=== PATIENT | female | born 1985 | race Caucasian/White ===

== ENCOUNTER 2017-01-24 17:02 | Inpatient (IN) | payer BC ==
[2017-01-24] MEDS ORDERED: Terbutaline 1 MG/ML SDV SUBCUT PRN (17:49)
[2017-01-24] MEDS ORDERED: Lactated Ringers 1,000 ML IV SCH ×3 (18:00→23:00)
[2017-01-24] MEDS ORDERED: Ondansetron 4 MG/2 ML SDV IVPUSH ONE (18:16)
[2017-01-24] MEDS ORDERED: Metoclopramide 10 MG/2 ML SDV IVPUSH ONE (20:02)
[2017-01-25] MEDS ORDERED: ceFAZolin 2 GM in Premix Bag 1 BAG IV ONE (03:54)
[2017-01-25] MEDS ORDERED: Lactated Ringers 1,000 ML IV SCH (04:00)
[2017-01-25] MEDS ORDERED: Citric Acid/Sodium Citrate Solution 30 ML Cup PO SCH (04:00)
--- NOTE | 2017-01-25 04:20 | PCM.PREANE ---
Preanesthetic Assessment - Anesthesia/Transfusion/Family Hx Anesthesia History: No Prior Anesthesia Transfusion History: No Prior Transfusion(s) - Review of Systems General: No Symptoms Pulmonary: No Symptoms Cardiovascular: No Symptoms Gastrointestinal: No symptoms Neurological: No Symptoms Other: Reports: None - Physical Assessment Height: 1.52 m Weight: 66.193 kg ASA Class: 2 Mental Status: Alert & Oriented x3 Airway Class: Mallampati = 2 Dentition: Reports: Normal Dentition ROM/Head Extension: Full Lungs: Clear to auscultation, Normal respiratory effort Cardiovascular: Regular Rate, Regular Rhythm - Lab Values: Laboratory Last Values WBC 12.65 K/uL (4.0-11.0) H 01/24/17 19:52 RBC 4.11 M/uL (4.30-5.90) L 01/24/17 19:52 Hgb 12.7 g/dL (12.0-16.0) 01/24/17 19:52 Hct 37.2 % (36.0-46.0) 01/24/17 19:52 MCV 90.5 fL (80.0-98.0) 01/24/17 19:52 MCH 30.9 pg (27.0-32.0) 01/24/17 19:52 MCHC 34.1 g/dL (31.0-37.0) 01/24/17 19:52 RDW Std Deviation 42.7 fl (28.0-62.0) 01/24/17 19:52 RDW Coeff of Klaus 13 % (11.0-15.0) 01/24/17 19:52 Plt Count 196 K/uL (150-400) 01/24/17 19:52 MPV 11.90 fL (7.40-12.00) 01/24/17 19:52 Neut % (Auto) 75.9 % (48.0-80.0) 01/24/17 19:52 Lymph % (Auto) 16.4 % (16.0-40.0) 01/24/17 19:52 Pratt % (Auto) 7.2 % (0.0-15.0) 01/24/17 19:52 Eos % (Auto) 0.3 % (0.0-7.0) 01/24/17 19:52 Baso % (Auto) 0.2 % (0.0-1.5) 01/24/17 19:52 Neut # (Auto) 9.6 K/uL (1.4-5.7) H 01/24/17 19:52 Lymph # (Auto) 2.1 K/uL (0.6-2.4) 01/24/17 19:52 Pratt # (Auto) 0.9 K/uL (0.0-0.8) H 01/24/17 19:52 Eos # (Auto) 0.0 K/uL (0.0-0.7) 01/24/17 19:52 Baso # (Auto) 0.0 K/uL (0.0-0.1) 01/24/17 19:52 Nucleated RBC % 0.0 /100WBC 01/24/17 19:52 Nucleated RBCs # 0 K/uL 01/24/17 19:52 Sodium 136 mmol/L (136-146) 01/24/17 19:52 Potassium 3.5 mmol/L (3.5-5.1) 01/24/17 19:52 Chloride 107 mmol/L (98-110) 01/24/17 19:52 Carbon Dioxide 15 mmol/L (21-31) L 01/24/17 19:52 BUN 15 mg/dL (6.0-23.0) 01/24/17 19:52 Creatinine 1.2 mg/dL (0.6-1.5) 01/24/17 19:52 Est Cr Clr Drug Dosing 48.34 mL/min 01/24/17 19:52 Estimated GFR (MDRD) 52.1 ml/min 01/24/17 19:52 Glucose 89 mg/dL (60-110) 01/24/17 19:52 Uric Acid 8.5 mg/dL (2.1-6.2) H 01/24/17 19:52 Calcium 8.9 mg/dL (8.8-10.8) 01/24/17 19:52 Total Bilirubin 0.3 mg/dL (0.1-1.5) 01/24/17 19:52 AST 25 IU/L (5-40) 01/24/17 19:52 ALT 19 IU/L (8-54) 01/24/17 19:52 Alkaline Phosphatase 262 (40-150) H 01/24/17 19:52 Total Protein 6.5 g/dL (6.0-8.0) 01/24/17 19:52 Albumin 2.7 g/dL (3.5-5.0) L 01/24/17 19:52 Globulin 3.8 g/dL (2.0-3.5) H 01/24/17 19:52 Albumin/Globulin Ratio 0.7 (1.3-2.8) L 01/24/17 19:52 Urine Color YELLOW 01/24/17 19:15 Urine Appearance SLT CLOUDY 01/24/17 19:15 Urine pH 7.0 (5.0-8.0) 01/24/17 19:15 Ur Specific [place] 1.015 (1.001-1.035) 01/24/17 19:15 Urine Protein TRACE mg/dL (NEGATIVE) 01/24/17 19:15 Urine Glucose (UA) NEGATIVE mg/dL (NEGATIVE) 01/24/17 19:15 Urine Ketones NEGATIVE mg/dL (NEGATIVE) 01/24/17 19:15 Urine Occult Blood NEGATIVE (NEGATIVE) 01/24/17 19:15 Urine Nitrite NEGATIVE (NEGATIVE) 01/24/17 19:15 Urine Bilirubin NEGATIVE (NEGATIVE) 01/24/17 19:15 Urine Urobilinogen 0.2 EU/dL (<2.0) 01/24/17 19:15 Ur Leukocyte Esterase SMALL (NEGATIVE) 01/24/17 19:15 - Allergies Allergies/Adverse Reactions: Allergies Allergy/AdvReac Type Severity Reaction Status Date / Time No Known Allergies Allergy Verified 02/24/16 07:27 - Blood Blood Available: Yes - Anesthesia Plan Pre-Op Medication Ordered: Antacids - Acknowledgements Anesthesia Type Planned: Spinal Pt an Appropriate Candidate for the Planned Anesthesia: Yes Alternatives and Risks of Anesthesia Discussed w Pt/Guardian: Yes Pt/Guardian Understands and Agrees with Anesthesia Plan: Yes Additional Comments: two prior vaginal deliveries with epidural, term, twin gest, malposition of first twin, + rupt of membranes, No problems during . PMH=asthma, uses inhalers, NKDA PreAnesthesia Questionnaire Respiratory History: Reports: Asthma [employer]OR History: Reports: , Spontaneous - SUBSTANCE USE Smoking Status *Q: Never Smoker Second Hand Smoke Exposure: No Recreational Drug Use History: No - CURRENT (IN HOUSE) MEDS Current Meds: Current Medications Citric Acid/Sodium Citrate (Bicitra Solution) 30 ml PO .ONCE ELLE Lactated Ringer's (Ringers, Lactated) 1,000 mls @ 999 mls/hr IV .BOLUS [place] Last Admin: 01/24/17 18:10 Dose: 999 mls/hr Lactated Ringer's (Ringers, Lactated) 1,000 mls @ 250 mls/hr IV ASDIRECTED ELLE Last Admin: 01/24/17 19:14 Dose: 250 mls/hr Lactated Ringer's (Ringers, Lactated) 1,000 mls @ 150 mls/hr IV ASDIRECTED ELLE Last Admin: 01/24/17 23:23 Dose: 150 mls/hr Cefazolin Sodium/Dextrose 2 gm (/ Premix) 50 mls @ 100 mls/hr IV ONETIME ONE Stop: 01/25/17 04:23 Lactated Ringer's (Ringers, Lactated) 1,000 mls @ 500 mls/hr IV .BOLUS ELLE Terbutaline Sulfate (Brethine) 0.25 mg SUBCUT ASDIRECTED PRN PRN Reason: Other Stop: 01/25/17 17:54 Last Admin: 01/24/17 19:14 Dose: 0.25 mg Discontinued Medications Metoclopramide HCl (Reglan) 10 mg IVPUSH ONETIME ONE Stop: 01/24/17 20:03 Last Admin: 01/24/17 20:31 Dose: 10 mg Ondansetron HCl (Zofran) 4 mg IVPUSH ONETIME ONE Stop: 01/24/17 18:17 Last Admin: 01/24/17 18:40 Dose: 4 mg
[2017-01-25] MEDS ORDERED: Phenylephrine/Normal Saline 100 MCG/ML 10 ML Syringe ONE ×2 (04:30→05:27)
[2017-01-25] MEDS ORDERED: Oxytocin 10 Units/1 ML SDV ONE (04:30)
[2017-01-25] MEDS ORDERED: Morphine PF 10 MG/10 ML SDV ONE (04:31)
[2017-01-25] MEDS ORDERED: fentaNYL 100 MCG/2 ML SDV IVPUSH PRN (06:31)
[2017-01-25] MEDS ORDERED: Nalbuphine 10 MG/1 ML Vial IVPUSH PRN (06:31)
[2017-01-25] MEDS ORDERED: HYDROmorphone 2 MG/ML Syringe IVPUSH PRN (06:31)
[2017-01-25] MEDS ORDERED: Ketorolac 15 MG/ML SDV IVPUSH ONE (06:37)
[2017-01-25] MEDS ORDERED: Ketorolac 15 MG/ML SDV ONE (06:37)
[2017-01-25] MEDS ORDERED: Ondansetron 4 MG/2 ML SDV IV PRN (06:41)
[2017-01-25] MEDS ORDERED: Bisacodyl 10 MG Supp RECTAL PRN (06:41)
[2017-01-25] MEDS ORDERED: Lanolin 100% Cream 7 GM Tube TOP PRN (06:41)
[2017-01-25] MEDS ORDERED: Ibuprofen 800 MG Tab PO PRN (06:41)
[2017-01-25] MEDS ORDERED: diphenhydrAMINE 50 MG/ML SDV IVPUSH PRN (06:41)
[2017-01-25] MEDS ORDERED: Acetaminophen/oxyCODONE 325-5 MG Tab PO PRN (06:41)
[2017-01-25] MEDS ORDERED: Ketorolac 30 MG/ML SDV IVPUSH SCH (06:45)
--- NOTE | 2017-01-25 07:07 | PCM.POSTAN ---
POST ANESTHESIA ASSESSMENT - MENTAL STATUS Mental Status: alert, oriented - RESPIRATORY Respiratory Status: respiratory rate WNL, airway patent, O2 saturation stable - CARDIOVASCULAR CV Status: pulse rate WNL, blood pressure stable - GASTROINTESTINAL GI Status: no symptoms - PAIN Pain Score: 0 - POST OP HYDRATION Hydration Status: adequate & stable
--- NOTE | 2017-01-25 07:38 | PCM.OPNOTE ---
- General Post-Op/Procedure Note Date of Surgery/Procedure: 01/25/17 Operative Procedure(s): Primary low transverse section. Placement of surgicel Findings: VFI in breech presentation with APGARS of 7&8 and wt of 2290g, VMI in vtx presentation with APGARS 8&9 and wt of 2395g. Normal intact placentas, each with 3 vessel cords. Normal uterus, tubes and ovaries. Small bleeding vessel on the right side of the developed bladder flap Pre Op Diagnosis: Dichorionic/diamniotic twins. Breech presentation of twin A. Spontaneous rupture of membranes Post-Op Diagnosis: Same. Delivered Anesthesia Technique: Spinal Primary Surgeon: Alyx Galloway Anesthesia Provider: Silvino Boland Pathology: placentas Fluid Replacement, Intraop: 1,800 Output, Urine Amount: 150 EBL in mLs: 700 Complications: None known Condition: Good Free Text/Narrative:: Intake & Output 01/24/17 01/25/17 01/25/17 22:59 06:59 14:59 Intake Total 2500 Output Total 150 300 Balance -150 2200 JobID#[id number]
[2017-01-25] MEDS: Lactated Ringers 1,000 ML IV SCH ×2 (08:48→16:50)
[2017-01-25] MEDS: Docusate Sodium 100 MG Cap PO SCH (09:30)
[2017-01-25] MEDS ORDERED: Promethazine 25 MG/ML SDV IM ONE (10:08)
[2017-01-25] MEDS: Ketorolac 30 MG/ML SDV IVPUSH SCH ×2 (13:08→19:58)
[2017-01-26] MEDS: Ketorolac 30 MG/ML SDV IVPUSH SCH ×2 (02:19→08:54)
[2017-01-26] MEDS: Docusate Sodium 100 MG Cap PO SCH ×3 (03:25→21:19)
--- NOTE | 2017-01-26 13:37 | PCM48HPAN ---
Post Anesthesia Note - EVALUATION WITHIN 48HRS OF ANESTHETIC Vital Signs in Normal Range: Yes Patient Participated in Evaluation: Yes Respiratory Function Stable: Yes Airway Patent: Yes Cardiovascular Function Stable: Yes Hydration Status Stable: Yes Pain Control Satisfactory: Yes Nausea and Vomiting Control Satisfactory: Yes Mental Status Recovered: Yes
--- NOTE | 2017-01-26 15:18 | PCM.PNPP ---
- General Info Date of Service: 01/26/17 Functional Status: Reports: pain controlled, tolerating diet, ambulating, urinating - Review of Systems General: Reports: No Symptoms HEENT: Reports: no symptoms Pulmonary: Reports: no symptoms Cardiovascular: Reports: No Symptoms Gastrointestinal: Reports: No symptoms Genitourinary: Reports: no symptoms Musculoskeletal: Reports: no symptoms Skin: Reports: no symptoms Neurological: Reports: No Symptoms Psychiatric: Reports: no symptoms - General Info Date of Service: 01/26/17 - Patient Data Vital Signs - most recent: Last Vital Signs Temp 37.4 C 01/26/17 10:43 Pulse 84 01/26/17 10:43 Resp 16 01/26/17 10:43 BP 141/61 H 01/26/17 10:43 Pulse Ox 95 01/26/17 10:43 Weight - most recent: 66.193 kg I&O - last 24 hours: Intake & Output 01/26/17 01/26/17 01/26/17 06:59 14:59 22:59 Intake Total 1150 Output Total 1300 900 Balance -150 -900 Lab Results - last 24 hrs: Laboratory Results - last 24 hr 01/26/17 Range/Units 05:12 Hgb 10.4 L (12.0-16.0) g/dL Hct 31.4 L (36.0-46.0) % Med Orders - Current: Current Medications Bisacodyl (Dulcolax) 10 mg RECTAL .ONCE PRN PRN Reason: Constipation Citric Acid/Sodium Citrate (Bicitra Solution) 30 ml PO .ONCE ELLE Diphenhydramine HCl (Benadryl) 25 mg IVPUSH Q6H PRN PRN Reason: Itching or Nausea Docusate Sodium (Colace) 100 mg PO BID [facility] Last Admin: 01/26/17 08:54 Dose: 100 mg Emollient Ointment (Lansinoh Hpa) 0 gm TOP ASDIRECTED PRN PRN Reason: Sore Nipples Lactated Ringer's (Ringers, Lactated) 1,000 mls @ 999 mls/hr IV .BOLUS [facility] Last Admin: 01/24/17 18:10 Dose: 999 mls/hr Lactated Ringer's (Ringers, Lactated) 1,000 mls @ 250 mls/hr IV ASDIRECTED [facility] Last Admin: 01/24/17 19:14 Dose: 250 mls/hr Lactated Ringer's (Ringers, Lactated) 1,000 mls @ 150 mls/hr IV ASDIRECTED [facility] Last Admin: 01/24/17 23:23 Dose: 150 mls/hr Lactated Ringer's (Ringers, Lactated) 1,000 mls @ 500 mls/hr IV .BOLUS [facility] Lactated Ringer's (Ringers, Lactated) 1,000 mls @ 125 mls/hr IV ASDIRECTED [facility] Last Admin: 01/25/17 16:50 Dose: 125 mls/hr Ibuprofen (Motrin) 800 mg PO Q8H PRN PRN Reason: mild pain or fever Ondansetron HCl (Zofran) 4 mg IV Q4H PRN PRN Reason: Nausea/Vomiting Last Admin: 01/25/17 08:40 Dose: 4 mg Oxycodone/Acetaminophen (Percocet 325-5 Mg) 1 tab PO Q4H PRN PRN Reason: Pain (moderate 4-6) Oxycodone/Acetaminophen (Percocet 325-5 Mg) 2 tab PO Q4H PRN PRN Reason: Pain (moderate 4-6) Discontinued Medications Fentanyl (Sublimaze) 50 mcg IVPUSH Q5M PRN PRN Reason: Pain (severe 7-10) Stop: 01/26/17 06:32 Hydromorphone HCl (Dilaudid) 0.25 mg IVPUSH Q10M PRN PRN Reason: Pain (severe 7-10) Stop: 01/26/17 06:32 Cefazolin Sodium/Dextrose 2 gm (/ Premix) 50 mls @ 100 mls/hr IV ONETIME ONE Stop: 01/25/17 04:23 Ibuprofen (Motrin) 800 mg PO Q8H PRN PRN Reason: mild pain or fever Ketorolac Tromethamine (Toradol) 15 mg IVPUSH ONETIME ONE Stop: 01/25/17 06:38 Last Admin: 01/25/17 06:40 Dose: 15 mg Ketorolac Tromethamine (Toradol) Confirm Administered Dose 15 mg .ROUTE .STK- MED ONE Stop: 01/25/17 06:38 Last Admin: 01/25/17 11:17 Dose: Not Given Ketorolac Tromethamine (Toradol) 30 mg IVPUSH Q6H [facility] Stop: 01/26/17 06:46 Ketorolac Tromethamine (Toradol) 30 mg IVPUSH Q6H [facility] Stop: 01/26/17 07:01 Last Admin: 01/26/17 08:54 Dose: 30 mg Metoclopramide HCl (Reglan) 10 mg IVPUSH ONETIME ONE Stop: 01/24/17 20:03 Last Admin: 01/24/17 20:31 Dose: 10 mg Morphine Sulfate (Duramorph Pf) Confirm Administered Dose 10 mg .ROUTE .STK-MED ONE Stop: 01/25/17 04:32 Nalbuphine HCl (Nubain) 5 mg IVPUSH Q3H PRN PRN Reason: Pruritis Stop: 01/26/17 06:32 Ondansetron HCl (Zofran) 4 mg IVPUSH ONETIME ONE Stop: 01/24/17 18:17 Last Admin: 01/24/17 18:40 Dose: 4 mg Oxytocin (Pitocin) Confirm Administered Dose 20 unit .ROUTE .STK-MED ONE Stop: 01/25/17 04:31 Phenylephrine HCl (Phenylephrine In Ns 100 Mcg/Ml) Confirm Administered Dose 1 mg .ROUTE .STK-MED ONE Stop: 01/25/17 04:31 Phenylephrine HCl (Phenylephrine In Ns 100 Mcg/Ml) Confirm Administered Dose 1 mg .ROUTE .STK-MED ONE Stop: 01/25/17 05:28 Promethazine HCl (Phenergan) 12.5 - 25 mg IM ONETIME ONE Stop: 01/25/17 10:09 Last Admin: 01/25/17 10:20 Dose: 12.5 mg Terbutaline Sulfate (Brethine) 0.25 mg SUBCUT ASDIRECTED PRN PRN Reason: Other Stop: 01/25/17 17:54 Last Admin: 01/24/17 19:14 Dose: 0.25 mg - Interaction Disposition, : in Room with Family Infant Interaction: Holding Infant Feeding: Breastfed ; Nursed Well Support Person: - Recovery Exam Fundal Tone: Firm Fundal Level: 1 Fingerbreadths Below Umbilicus Fundal Placement: Midline Lochia Amount: Scant Lochia Color: Rubra/Red Perineum Description: Intact, Minimal Bruising/Swelling Episiotomy/Laceration: None Bladder Status: Voiding Urinary Elimination: Indwelling Catheter - Exam General: alert, oriented Neck: supple Lungs: Clear to auscultation, Normal respiratory effort Cardiovascular: Regular Rate, Regular Rhythm Abdomen: bowel sounds present, soft, no tenderness Extremities: no calf tenderness Skin: warm, dry, intact Wound/Incisions: healing well Neurological: no new focal deficit Psy/Mental Status: alert, normal affect, normal mood - Problem List & Annotations (1) delivery delivered SNOMED Code(s): 372975104 Code(s): O82 - ENCOUNTER FOR DELIVERY WITHOUT INDICATION Status: Acute Current Visit: Yes - Problem List Review Problem List Initiated/Reviewed/Updated: Yes - My Orders Last 24 Hours: My Active Orders 01/26/17 13:00 Ibuprofen [Motrin] 800 mg PO Q8H PRN - Assessment Assessment:: POD#1 S/p 1LTCS for malpresentation of fetus A Doing well other than cough Pain controlled with meds - Plan Plan:: Increase ambulation Pt may shower Routine postop/pp care
[2017-01-26] MEDS: Acetaminophen/oxyCODONE 325-5 MG Tab PO PRN ×3 (15:28→21:20)
[2017-01-26] MEDS: Ibuprofen 800 MG Tab PO PRN ×2 (15:29→23:25)
--- NOTE | 2017-01-26 17:13 | OR ---
SURGEON: Alyx Galloway DATE OF PROCEDURE: 01/25/2017 BRIEF PREOPERATIVE HISTORY: This is a 31-year-old G5, P1, presents to Labor and Delivery with complaints of generalized not feeling well with some nausea and vomiting. The patient was admitted for 23 observation overnight, secondary to not feeling well. In the meantime, the patient did receive 2 L of IV fluids for which the patient stated she felt better especially after having IV Zofran. Of note, the patient was 36 weeks 1 day with dye-dye twins, and the patient was also noted to be marilin anywhere from every 3 minutes or so, though the cervix was not making any changes. The patient was 3 cm in the office last time she was checked and she was 3 cm continuously in Labor and Delivery. Of note, the patient is category 1 status for both babies. Laboratory evaluation was completed, labs were noted to be fine. LFTs were within normal limits. Platelets were normal. The patient's uric acid was 8.5, and patient's creatinine was 1.2. The patient would have had a 24-hour urine to be started, though patient's blood pressures were noted to be normotensive. It was not sure at this point whether or not these were early symptoms of preeclampsia. While the patient was kept overnight for evaluation, the patient eventually underwent spontaneous rupture of membranes for clear fluid for fetus A. At this point, secondary to noting that fetus A was now presenting in breech presentation, the patient did elect for a primary section. The patient was apprised of the risk of being bleeding, infection, poor wound healing, possible damage to the bowel, the bladder, ureters, nerves, blood vessels, or any other adjacent structures, in addition to thromboembolic disease and risk of anesthesia. The patient was also apprised of the remote risk of hysterectomy. Knowing all of the above, the patient did consent to primary low transverse section. PREOPERATIVE DIAGNOSES: 1. Intrauterine at 36 weeks 2 days of dichorionic diamniotic twins. 2. Breech presentation of twin A. 3. Spontaneous rupture of membranes. POSTOPERATIVE DIAGNOSES: 1. Intrauterine at 36 weeks 2 days of dichorionic diamniotic twins. 2. Breech presentation of twin A. 3. Spontaneous rupture of membranes. 4. Delivery status. PROCEDURE PERFORMED: 1. Primary low transverse section. 2. Placement of Surgicel. ANESTHESIA: Spinal. ESTIMATED BLOOD LOSS: 700 mL. FLUIDS: Fluids replacement in the OR was 1800 mL of crystalloid. URINE OUTPUT: 150 mL of clear urine at the end of procedure. FINDINGS: Viable female infant in breech presentation with score of 7 and 8 at 1 and 5 minutes respectively and weight of 2395 g. Viable male in vertex presentation with score of 8 and 9 and weight of 2395 g. Normal intact placenta, each cord with three vessels. Normal uterus, tubes, and ovaries bilaterally. Small bleeding vessel on the right side that developed on bladder flap. PATHOLOGY: Placentas COMPLICATIONS: None known. CONDITION: Postprocedure was good. DESCRIPTION OF PROCEDURE: The patient was taken to the operating room where she had Venodynes on and active prior to the placement of spinal anesthesia. After placement of spinal, the patient was quickly laid down and placed in the left lateral tilt. The patient then had a Yen placed that was draining clear fluid. The patient's abdomen was then cleansed. The patient was then prepped and draped in normal sterile fashion. A time-out was held to ensure the appropriate patient, appropriate position, and appropriate procedure. The patient also did receive 2 g of IV Ancef prior to start of procedure. Prior to start of procedure, the patient was tested with an Allis clamp and spinal anesthesia was noted to be adequate. A Pfannenstiel skin incision was then made approximately 2 cm above the symphysis pubis with a new scalpel blade. The Bovie was used to dissect down to the underlying layer of fascia. The fascia was incised in the midline and then extended laterally with the Bovie. The Franc clamps were used to grasp the superior aspect of the fascial incision, tented up, and the rectus muscles were dissected off bluntly then sharply with the Bovie. Attention was then turned to the inferior portion of the fascial incision, which the inferior portion of the fascia was tented up and the rectus muscles were dissected off bluntly then sharply with the Bovie. The rectus muscles were then in the midline in lateral blunt stretching after entering the peritoneal cavity. The Imtiaz self-retaining retractor was then placed in the patient's abdomen. The vesicouterine peritoneum was identified, tented up with the pickups, and entered sharply with the Metzenbaum scissors. The bladder flap was created digitally. A fresh scalpel blade was used to incise the lower uterine segment in a transverse fashion. The hysterotomy incision then was extended in anterior - posterior direction to prevent lateral excess shearing out to the uterine vessels. The amniotic fluid was noted to be clear. The fetus A buttocks was brought through the hysterotomy incision, followed by the legs and feet. The right arm was reduced, followed by the left arm and then the baby's head was flexed and brought through the hysterotomy incision. Cord was doubly clamped, the infant screening was handed off to the awaiting physician Dr. Avila. The 2nd bag of fluid was noted to be bulging and amniotomy was completed with a Franc clamp. The vertex was brought through the hysterotomy incision followed by body. Fetus B which was the boy had a vigorous cry at delivery. [place] was suction, cord was doubly clamped, cut, and was taken directly over to the baby warmer. Afterwards, cord gases were completed for a fetus A which was the little girl secondary to poor crying effort and slightly limp at delivery. Cord blood was collected for both newborns. The placentas were removed manually. IV Pitocin was given as uterotonic to prevent excessive maternal blood loss and to help firm up the uterus. The uterus was cleared of all clots and debris. The first layer of the hysterotomy incision was closed with 0 Vicryl suture in a running, locked fashion. The second layer of the same suture was used to imbricate the 2nd layer. Hemostasis was noted to be excellent on the hysterotomy incision. The ovaries and tubes were checked bilaterally and noted to be normal. There was some excess blood from the right side of the developed bladder flap. It was noted that there was a small bleeding vessel that was cauterized with the Bovie. A piece of Surgicel was placed on the right lateral edge of the developed bladder flap and then the remainder of the Surgicel was brought across the bladder flap and hysterotomy incision. Once hemostasis was noted to be excellent, the peritoneum and rectus muscles were then reapproximated with 0 Vicryl suture in a running mattress suture. The fascia was reapproximated with 0 Vicryl suture in a running fashion. The subcutaneous adipose was reapproximated initially with 3 - 0 plain gut suture. The skin was reapproximated with 3-0 Prolene suture on a Fer needle. The remainder of the suture was tied. Mastisol was placed along with Steri-Strips, Telfa, and a pressure dressing. The uterus was expelled of excess blood. The patient was cleansed. The patient was transferred to her bed. The patient went to recovery in awake and stable condition. MELANIE GODOY /[id number]
[2017-01-27] MEDS: Acetaminophen/oxyCODONE 325-5 MG Tab PO PRN ×6 (01:22→23:16)
[2017-01-27] MEDS: Ibuprofen 800 MG Tab PO PRN ×2 (08:07→16:09)
[2017-01-27] MEDS: Docusate Sodium 100 MG Cap PO SCH ×2 (08:08→21:45)
--- NOTE | 2017-01-27 08:27 | PCM.PNPP ---
- General Info Date of Service: 01/27/17 Functional Status: Reports: pain controlled, tolerating diet, ambulating, urinating - Review of Systems General: Reports: No Symptoms HEENT: Reports: no symptoms Pulmonary: Reports: no symptoms Cardiovascular: Reports: No Symptoms Gastrointestinal: Reports: No symptoms Genitourinary: Reports: no symptoms Musculoskeletal: Reports: no symptoms Skin: Reports: no symptoms Neurological: Reports: No Symptoms Psychiatric: Reports: no symptoms - Patient Data Vital Signs - most recent: Last Vital Signs Temp 36.4 C 01/27/17 04:00 Pulse 74 01/27/17 04:00 Resp 16 01/27/17 04:00 BP 138/88 01/27/17 04:00 Pulse Ox 97 01/27/17 04:00 Weight - most recent: 66.193 kg I&O - last 24 hours: Intake & Output 01/26/17 01/27/17 01/27/17 22:59 06:59 14:59 Intake Total 1800 Output Total 150 Balance 1650 Lab Results - last 24 hrs: Laboratory Results - last 24 hr 01/27/17 Range/Units 04:41 Sodium 139 (136-146) mmol/L Potassium 4.1 (3.5-5.1) mmol/L Chloride 106 (98-110) mmol/L Carbon Dioxide 23 (21-31) mmol/L BUN 19 (6.0-23.0) mg/dL Creatinine 1.2 (0.6-1.5) mg/dL Est Cr Clr Drug Dosing 48.34 mL/min Estimated GFR (MDRD) 52.1 ml/min Glucose 85 (60-110) mg/dL Calcium 8.0 L (8.8-10.8) mg/dL Total Bilirubin 0.2 (0.1-1.5) mg/dL AST 28 (5-40) IU/L ALT 15 (8-54) IU/L Alkaline Phosphatase 160 H (40-150) Total Protein 4.9 L (6.0-8.0) g/dL Albumin 2.3 L (3.5-5.0) g/dL Globulin 2.6 (2.0-3.5) g/dL Albumin/Globulin Ratio 0.9 L (1.3-2.8) Med Orders - Current: Current Medications Bisacodyl (Dulcolax) 10 mg RECTAL .ONCE PRN PRN Reason: Constipation Citric Acid/Sodium Citrate (Bicitra Solution) 30 ml PO .ONCE [facility] Diphenhydramine HCl (Benadryl) 25 mg IVPUSH Q6H PRN PRN Reason: Itching or Nausea Docusate Sodium (Colace) 100 mg PO BID [facility] Last Admin: 01/27/17 08:08 Dose: 100 mg Emollient Ointment (Lansinoh Hpa) 0 gm TOP ASDIRECTED PRN PRN Reason: Sore Nipples Lactated Ringer's (Ringers, Lactated) 1,000 mls @ 999 mls/hr IV .BOLUS [facility] Last Admin: 01/24/17 18:10 Dose: 999 mls/hr Lactated Ringer's (Ringers, Lactated) 1,000 mls @ 250 mls/hr IV ASDIRECTED [facility] Last Admin: 01/24/17 19:14 Dose: 250 mls/hr Lactated Ringer's (Ringers, Lactated) 1,000 mls @ 150 mls/hr IV ASDIRECTED [facility] Last Admin: 01/24/17 23:23 Dose: 150 mls/hr Lactated Ringer's (Ringers, Lactated) 1,000 mls @ 500 mls/hr IV .BOLUS [facility] Lactated Ringer's (Ringers, Lactated) 1,000 mls @ 125 mls/hr IV ASDIRECTED [facility] Last Admin: 01/25/17 16:50 Dose: 125 mls/hr Ibuprofen (Motrin) 800 mg PO Q8H PRN PRN Reason: mild pain or fever Last Admin: 01/27/17 08:07 Dose: 800 mg Ondansetron HCl (Zofran) 4 mg IV Q4H PRN PRN Reason: Nausea/Vomiting Last Admin: 01/25/17 08:40 Dose: 4 mg Oxycodone/Acetaminophen (Percocet 325-5 Mg) 1 tab PO Q4H PRN PRN Reason: Pain (moderate 4-6) Last Admin: 01/27/17 06:05 Dose: 1 tab Oxycodone/Acetaminophen (Percocet 325-5 Mg) 2 tab PO Q4H PRN PRN Reason: Pain (moderate 4-6) Discontinued Medications Fentanyl (Sublimaze) 50 mcg IVPUSH Q5M PRN PRN Reason: Pain (severe 7-10) Stop: 01/26/17 06:32 Hydromorphone HCl (Dilaudid) 0.25 mg IVPUSH Q10M PRN PRN Reason: Pain (severe 7-10) Stop: 01/26/17 06:32 Cefazolin Sodium/Dextrose 2 gm (/ Premix) 50 mls @ 100 mls/hr IV ONETIME ONE Stop: 01/25/17 04:23 Ibuprofen (Motrin) 800 mg PO Q8H PRN PRN Reason: mild pain or fever Ketorolac Tromethamine (Toradol) 15 mg IVPUSH ONETIME ONE Stop: 01/25/17 06:38 Last Admin: 01/25/17 06:40 Dose: 15 mg Ketorolac Tromethamine (Toradol) Confirm Administered Dose 15 mg .ROUTE .STK- MED ONE Stop: 01/25/17 06:38 Last Admin: 01/25/17 11:17 Dose: Not Given Ketorolac Tromethamine (Toradol) 30 mg IVPUSH Q6H [facility] Stop: 01/26/17 06:46 Ketorolac Tromethamine (Toradol) 30 mg IVPUSH Q6H [facility] Stop: 01/26/17 07:01 Last Admin: 01/26/17 08:54 Dose: 30 mg Metoclopramide HCl (Reglan) 10 mg IVPUSH ONETIME ONE Stop: 01/24/17 20:03 Last Admin: 01/24/17 20:31 Dose: 10 mg Morphine Sulfate (Duramorph Pf) Confirm Administered Dose 10 mg .ROUTE .STK-MED ONE Stop: 01/25/17 04:32 Nalbuphine HCl (Nubain) 5 mg IVPUSH Q3H PRN PRN Reason: Pruritis Stop: 01/26/17 06:32 Ondansetron HCl (Zofran) 4 mg IVPUSH ONETIME ONE Stop: 01/24/17 18:17 Last Admin: 01/24/17 18:40 Dose: 4 mg Oxytocin (Pitocin) Confirm Administered Dose 20 unit .ROUTE .STK-MED ONE Stop: 01/25/17 04:31 Phenylephrine HCl (Phenylephrine In Ns 100 Mcg/Ml) Confirm Administered Dose 1 mg .ROUTE .STK-MED ONE Stop: 01/25/17 04:31 Phenylephrine HCl (Phenylephrine In Ns 100 Mcg/Ml) Confirm Administered Dose 1 mg .ROUTE .STK-MED ONE Stop: 01/25/17 05:28 Promethazine HCl (Phenergan) 12.5 - 25 mg IM ONETIME ONE Stop: 01/25/17 10:09 Last Admin: 01/25/17 10:20 Dose: 12.5 mg Terbutaline Sulfate (Brethine) 0.25 mg SUBCUT ASDIRECTED PRN PRN Reason: Other Stop: 01/25/17 17:54 Last Admin: 01/24/17 19:14 Dose: 0.25 mg - Interaction Disposition, : in Room with Family Interaction: Holding Infant Infant Feeding: Breastfed Infant; Nursed Well Support Person: - Recovery Exam Fundal Tone: Firm Fundal Level: 1 Fingerbreadths Below Umbilicus Fundal Placement: Midline Lochia Amount: Scant Lochia Color: Rubra/Red Perineum Description: Intact, Minimal Bruising/Swelling Episiotomy/Laceration: None Bladder Status: Voiding Urinary Elimination: Voided - Exam General: alert, oriented Neck: supple Lungs: Normal respiratory effort Abdomen: soft, no tenderness, no distension Extremities: no edema Skin: warm, dry, intact Wound/Incisions: healing well Neurological: no new focal deficit Psy/Mental Status: alert, normal affect, normal mood - Problem List & Annotations (1) delivery delivered SNOMED Code(s): 174870599 Code(s): O82 - ENCOUNTER FOR DELIVERY WITHOUT INDICATION Status: Acute Current Visit: Yes (2) Twin , dichorionic/diamniotic, third trimester SNOMED Code(s): 016085065 Code(s): O30.043 - TWIN , DICHORIONIC/DIAMNIOTIC, THIRD TRIMESTER Status: Acute Current Visit: Yes (3) Breech presentation, delivered, current hospitalization SNOMED Code(s): 017642678 Code(s): O32.1XX0 - MATERNAL CARE FOR BREECH PRESENTATION, UNSP Status: Acute Current Visit: Yes - Problem List Review Problem List Initiated/Reviewed/Updated: Yes - Assessment Assessment:: POD#2 S/p 1LTCS for malpresentation of fetus A, stable, pain well controlled with minimal lochia, tolerating regular diet, ambulating without difficulty. is going well. - Plan Plan:: Continue care, anticipate discharge tomorrow.
[2017-01-28] MEDS: Ibuprofen 800 MG Tab PO PRN ×2 (00:23→09:29)
--- NOTE | 2017-01-28 06:48 | PCM.PNPP ---
- General Info Date of Service: 01/28/17 Functional Status: Reports: pain controlled, tolerating diet, ambulating, urinating - Review of Systems General: Reports: No Symptoms HEENT: Reports: no symptoms Pulmonary: Reports: no symptoms Cardiovascular: Reports: No Symptoms Gastrointestinal: Reports: No symptoms Genitourinary: Reports: no symptoms Musculoskeletal: Reports: no symptoms Skin: Reports: no symptoms Neurological: Reports: No Symptoms Psychiatric: Reports: no symptoms - Patient Data Vital Signs - most recent: Last Vital Signs Temp 36.8 C 01/28/17 04:00 Pulse 71 01/28/17 04:00 Resp 15 01/28/17 04:00 BP 136/85 01/28/17 04:00 Pulse Ox 93 L 01/28/17 04:00 Weight - most recent: 66.193 kg Med Orders - Current: Current Medications Bisacodyl (Dulcolax) 10 mg RECTAL .ONCE PRN PRN Reason: Constipation Citric Acid/Sodium Citrate (Bicitra Solution) 30 ml PO .ONCE [place] Diphenhydramine HCl (Benadryl) 25 mg IVPUSH Q6H PRN PRN Reason: Itching or Nausea Docusate Sodium (Colace) 100 mg PO BID [facility] Last Admin: 01/27/17 21:45 Dose: 100 mg Emollient Ointment (Lansinoh Hpa) 0 gm TOP ASDIRECTED PRN PRN Reason: Sore Nipples Lactated Ringer's (Ringers, Lactated) 1,000 mls @ 999 mls/hr IV .BOLUS [facility] Last Admin: 01/24/17 18:10 Dose: 999 mls/hr Lactated Ringer's (Ringers, Lactated) 1,000 mls @ 250 mls/hr IV ASDIRECTED [facility] Last Admin: 01/24/17 19:14 Dose: 250 mls/hr Lactated Ringer's (Ringers, Lactated) 1,000 mls @ 150 mls/hr IV ASDIRECTED [facility] Last Admin: 01/24/17 23:23 Dose: 150 mls/hr Lactated Ringer's (Ringers, Lactated) 1,000 mls @ 500 mls/hr IV .BOLUS [place] Lactated Ringer's (Ringers, Lactated) 1,000 mls @ 125 mls/hr IV ASDIRECTED [facility] Last Admin: 01/25/17 16:50 Dose: 125 mls/hr Ibuprofen (Motrin) 800 mg PO Q8H PRN PRN Reason: mild pain or fever Last Admin: 01/28/17 00:23 Dose: 800 mg Ondansetron HCl (Zofran) 4 mg IV Q4H PRN PRN Reason: Nausea/Vomiting Last Admin: 01/25/17 08:40 Dose: 4 mg Oxycodone/Acetaminophen (Percocet 325-5 Mg) 1 tab PO Q4H PRN PRN Reason: Pain (moderate 4-6) Last Admin: 01/27/17 23:16 Dose: 1 tab Oxycodone/Acetaminophen (Percocet 325-5 Mg) 2 tab PO Q4H PRN PRN Reason: Pain (moderate 4-6) Discontinued Medications Fentanyl (Sublimaze) 50 mcg IVPUSH Q5M PRN PRN Reason: Pain (severe 7-10) Stop: 01/26/17 06:32 Hydromorphone HCl (Dilaudid) 0.25 mg IVPUSH Q10M PRN PRN Reason: Pain (severe 7-10) Stop: 01/26/17 06:32 Cefazolin Sodium/Dextrose 2 gm (/ Premix) 50 mls @ 100 mls/hr IV ONETIME ONE Stop: 01/25/17 04:23 Ibuprofen (Motrin) 800 mg PO Q8H PRN PRN Reason: mild pain or fever Ketorolac Tromethamine (Toradol) 15 mg IVPUSH ONETIME ONE Stop: 01/25/17 06:38 Last Admin: 01/25/17 06:40 Dose: 15 mg Ketorolac Tromethamine (Toradol) Confirm Administered Dose 15 mg .ROUTE .STK- MED ONE Stop: 01/25/17 06:38 Last Admin: 01/25/17 11:17 Dose: Not Given Ketorolac Tromethamine (Toradol) 30 mg IVPUSH Q6H [facility] Stop: 01/26/17 06:46 Ketorolac Tromethamine (Toradol) 30 mg IVPUSH Q6H [facility] Stop: 01/26/17 07:01 Last Admin: 01/26/17 08:54 Dose: 30 mg Metoclopramide HCl (Reglan) 10 mg IVPUSH ONETIME ONE Stop: 01/24/17 20:03 Last Admin: 01/24/17 20:31 Dose: 10 mg Morphine Sulfate (Duramorph Pf) Confirm Administered Dose 10 mg .ROUTE .STK-MED ONE Stop: 01/25/17 04:32 Nalbuphine HCl (Nubain) 5 mg IVPUSH Q3H PRN PRN Reason: Pruritis Stop: 01/26/17 06:32 Ondansetron HCl (Zofran) 4 mg IVPUSH ONETIME ONE Stop: 01/24/17 18:17 Last Admin: 01/24/17 18:40 Dose: 4 mg Oxytocin (Pitocin) Confirm Administered Dose 20 unit .ROUTE .STK-MED ONE Stop: 01/25/17 04:31 Phenylephrine HCl (Phenylephrine In Ns 100 Mcg/Ml) Confirm Administered Dose 1 mg .ROUTE .STK-MED ONE Stop: 01/25/17 04:31 Phenylephrine HCl (Phenylephrine In Ns 100 Mcg/Ml) Confirm Administered Dose 1 mg .ROUTE .STK-MED ONE Stop: 01/25/17 05:28 Promethazine HCl (Phenergan) 12.5 - 25 mg IM ONETIME ONE Stop: 01/25/17 10:09 Last Admin: 01/25/17 10:20 Dose: 12.5 mg Terbutaline Sulfate (Brethine) 0.25 mg SUBCUT ASDIRECTED PRN PRN Reason: Other Stop: 01/25/17 17:54 Last Admin: 01/24/17 19:14 Dose: 0.25 mg - Interaction Infant Disposition, : at Bedside Infant Interaction: Holding Infant Feeding: Breastfed ; Nursed Well Support Person: - Recovery Exam Fundal Tone: Firm Fundal Level: 2 Fingerbreadths Below Umbilicus Fundal Placement: Midline Lochia Amount: Scant Lochia Color: Rubra/Red Perineum Description: Intact, Minimal Bruising/Swelling Episiotomy/Laceration: None Bladder Status: Voiding Urinary Elimination: Voided - Exam General: alert, oriented HEENT: Pupils equal Neck: supple Lungs: Clear to auscultation, Normal respiratory effort Cardiovascular: Regular Rate, Regular Rhythm Abdomen: bowel sounds present, soft, no tenderness, no distension Extremities: no edema Skin: warm, dry, intact Wound/Incisions: healing well Neurological: no new focal deficit Psy/Mental Status: alert, normal affect, normal mood - Problem List & Annotations (1) delivery delivered SNOMED Code(s): 751793345 Code(s): O82 - ENCOUNTER FOR DELIVERY WITHOUT INDICATION Status: Acute Current Visit: Yes (2) Twin , dichorionic/diamniotic, third trimester SNOMED Code(s): 332962471 Code(s): O30.043 - TWIN , DICHORIONIC/DIAMNIOTIC, THIRD TRIMESTER Status: Acute Current Visit: Yes (3) Breech presentation, delivered, current hospitalization SNOMED Code(s): 362256240 Code(s): O32.1XX0 - MATERNAL CARE FOR BREECH PRESENTATION, UNSP Status: Acute Current Visit: Yes - Problem List Review Problem List Initiated/Reviewed/Updated: Yes - Assessment Assessment:: POD#23 S/p 1LTCS for malpresentation of fetus A, stable, pain well controlled with minimal lochia, tolerating regular diet, ambulating without difficulty. is going well. Babies are both stable and anticipate they will be discharged today. - Plan Plan:: Discharge instructions reviewed, continue while .
[2017-01-28] MEDS: Docusate Sodium 100 MG Cap PO SCH (08:34)
[2017-01-28] MEDS: Acetaminophen/oxyCODONE 325-5 MG Tab PO PRN ×2 (08:34→13:12)
[2017-01-28 09:36] VITALS: BP 136/89
== END 2017-01-28 16:25 | disposition home or self-care (01) | DRG 540 ==
LOC: MW.OBCHECK 17:02 → MW.OB 17:06 → MW.OBCHECK 01-25 03:54 → MW.OB 01-25 07:00
PROVIDERS: ADMIT Obstetrics & Gynecology; ATTEND Obstetrics & Gynecology
PROC: 10D00Z1 Extraction of Products of Conception, Low, Open Approach (ICD-10-PCS; principal; 2017-01-25)
DX: O32.1XX1 Maternal care for breech presentation, fetus 1 (principal); O30.043 Twin pregnancy, dichorionic/diamniotic, third trimester; Z3A.36 36 weeks gestation of pregnancy; Z37.2 Twins, both liveborn
CPT/HCPCS: 01961; 36415; 59025; 80053; 81003; 84550; 85014; 85018; 85025; 86850; 86900; 86901; A9270-GY; J0690; J1885; J2270; J2405; J2550; J2590; J2765; J3105; J7120